=== PATIENT | male | born 1965 | race Hispanic/Latino ===

== ENCOUNTER 2019-02-04 14:11 | Outpatient (CLI) | payer OTHER ==
--- NOTE | 2019-02-04 14:54 | XRay Report ---
XR knee BILAT 1-2V INDICATION / CLINICAL INFORMATION: Bilateral knee pain. COMPARISON: None available. FINDINGS: BONES/JOINT(S): No acute fracture or subluxation. 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 No significant joint effusion. No aggressive appea ring bone lesions. SOFT TISSUES: No significant abnormality. ADDITIONAL FINDINGS: None. Signer Name: Brett Tapia MD Signed: 02/04/2019 2:50 PM Workstation Name: [id number]
== END 2019-02-04 14:12 | disposition home or self-care (01) ==
LOC: SPVIMAG 14:11
PROVIDERS: ATTEND Internal Medicine
DX: M17.0 Bilateral primary osteoarthritis of knee (principal)